=== PATIENT | female | born 1970 | race Caucasian/White ===

== ENCOUNTER 2020-03-21 12:42 | Outpatient (CLI) | payer BC, SELFPAY ==
--- NOTE | 2020-03-21 12:52 | MM_ITS ---
WS: [id number] BILATERAL DIGITAL SCREENING MAMMOGRAPHY WITH CAD CLINICAL INFORMATION: SCREENING HISTORY: Screening mammogram. No current complaints. COMPARISON: TECHNIQUE: Bilateral CC and MLO views. FINDINGS: Scattered fibroglandular densities bilaterally. No suspicious focal mass, asymmetry, calcifications, or architectural distortion. No evidence of malignancy. MM/[id number] IMPRESSION: BI-RADS: 1-Negative FOLLOW UP: 1 Year Follow-up Recommend return to annual screening mammography.
== END 2020-03-21 12:43 | disposition home or self-care (01) ==
LOC: RADSHAW 12:44
PROVIDERS: PCP Family Medicine; Visit Provider Family Medicine
DX: Z12.31 Encounter for screening mammogram for malignant neoplasm of breast (principal)
CPT/HCPCS: 77067

== ENCOUNTER 2021-08-01 14:40 | Outpatient (CLI) | payer BC, SELFPAY ==
--- NOTE | 2021-08-01 14:57 | MM_ITS ---
WS: [id number] SCREENING DIGITAL BREAST TOMOSYNTHESIS MAMMOGRAM WITH CAD HISTORY: SCREENING COMPARISON: 03/21/2020, 11/21/2018 Bilateral CC and MLO with tomosynthesis views submitted. Synthetic mammography reviewed. Computer aid ed detection analyzed. Breast composition: There are scattered areas of fibroglandular density. No suspicious masses, microc alcifications or architectural distortion. MM/[place] [id number] IMPRESSION: BI-RADS: 1-Negative FOLLOW UP: 1 Year Follow-up
== END 2021-08-01 14:41 | disposition home or self-care (01) ==
LOC: RAD 14:43
PROVIDERS: PCP Family Medicine; Visit Provider Family Medicine
DX: Z12.31 Encounter for screening mammogram for malignant neoplasm of breast (principal)
CPT/HCPCS: 77063; 77067

== ENCOUNTER 2022-09-17 08:20 | Outpatient (CLI) | payer BC, SELFPAY ==
--- NOTE | 2022-09-17 08:27 | MM_ITS ---
WS: [id number] BILATERAL SCREENING DIGITAL TOMOSYNTHESIS MAMMOGRAM WITH CAD HISTORY: SCREENING COMPARISON: 08/01/2021 and 03/21/2020 Bilateral CC and MLO views with tomosynthesis and synthetic mammography submitted. Computer aided det ection analyzed. Breast composition: There are scattered areas of fibroglandular density. No suspicious masses, microc alcifications or architectural distortion. Benign calcification central posterior right breast. IMPRESSION: MM/[place] [id number] BI-RADS: 2-Benign FOLLOW UP: 1 Year Follow-up
== END 2022-09-17 08:21 | disposition home or self-care (01) ==
LOC: RAD 08:25 → MOBLMAM 08:26
PROVIDERS: PCP Family Medicine; Visit Provider Family Medicine
DX: Z12.31 Encounter for screening mammogram for malignant neoplasm of breast (principal)
CPT/HCPCS: 77063; 77067

== ENCOUNTER → 2022-09-25 10:50 | Outpatient (BNVA) | payer BC, SELFPAY | PROVIDERS: PCP Family Medicine; Visit Provider Nurse Practitioner Women's Health | DX: N93.9 Abnormal uterine and vaginal bleeding, unspecified (principal) | CPT/HCPCS: 84443; 85025; 87624 ==

== ENCOUNTER → 2022-10-06 12:30 | Outpatient (BNVA) | payer BC, SELFPAY | PROVIDERS: PCP Family Medicine; Visit Provider Nurse Practitioner Women's Health | DX: N93.9 Abnormal uterine and vaginal bleeding, unspecified (principal); N83.201 Unspecified ovarian cyst, right side | CPT/HCPCS: 76830 ==

== ENCOUNTER 2022-12-10 10:20 | Day surgery (SDC) | payer BC, SELFPAY ==
[2022-12-10] VITALS (10 sets, daily range): BP systolic 133–179; BP diastolic 68–107; PULSE 69–95; RESP 10–20; TEMP 36.1–36.6; O2SAT 12–98; BMI 35.5
[2022-12-10 10:41] LABS: OR HCG Qualitative Urine Negative (Negative)
[2022-12-10] MEDS: sodium chloride 0.9% 1,000 ML 30 ML IV (10:44)
--- NOTE | 2022-12-10 11:25 | ANES.PREANE2 ---
Pre-Anesthetic Assessment Height/Weight: Height 1.68 m Weight 99.79 kg Temp Pulse Resp BP Pulse Ox O2 Del Method 97.0 F L 88 18 179/107 98 Room Air 12/10/22 10:35 12/10/22 10:35 12/10/22 10:35 12/10/22 10:35 12/10/22 10:35 12/10/22 10:36 Operation Date: 12/10/22 11:55 Proposed Procedures p Hysteroscopy w/ Endometrial Sampling(possible endometrial polypectomy with Myosure)(Not Applicable) - Mrerill Omalley MD s Placement of Intrauterine Device(Not Applicable) - Merrill Omalley MD Familial anesthetic complications: None Was Beta Donna taken within 24 hours: Yes Was Clonidine taken within 24 hours: N/A Last intake: Intake Last Liquid Date 12/09/22 Last Liquid Time 23:30 Last Solid Date 12/09/22 Last Solid Time 20:00 Social No alcohol and No tobacco Exam alert, oriented x 3, clear to auscultation bilaterally and regular rate & rhythm Airway Mallampati: Class III Dentition: other (3 missing) CV/HEM Hypertension Metabolic Morbid Obesity Anesthetic Plan ASA status: 2 Anesthesia: General Risk of > 500 ml blood loss (7ml/kg in children): No Medications/Allergies Home Medications Medication Instructions Recorded Confirmed Last Taken Type metoprolol tartrate 25 mg tablet 25 mg PO DAILY 09/25/22 12/10/22 12/10/22 08:30 History Allergies Allergy/AdvReac Type Severity Reaction Status Date / Time No Known Allergies Allergy Verified 12/09/22 13:42 Current Medications Generic Name Dose Route Start Last Admin Trade Name Genny PRN Reason Stop Dose Admin Sodium Chloride 1,000 mls @ 30 mls/hr 12/10/22 10:30 12/10/22 10:44 Sodium Chloride 0.9% IV 12/11/22 10:29 30 mls/hr .Q24H RAY Administration PFSH Anesthesia Medical History Hypertension No pertinent past medical history neghx:dm,thyroid,dvt/pe PCP: [facility] Surgical History No pertinent past surgical history Family History Grandmother Colon cancer paternal Thyroid disease maternal Father Diabetes Heart disease Hyperlipidemia Hypertension Brother Diabetes Mother Thyroid disease Family/Other Thyroid disease maternal aunt Denies family history of Ovarian cancer Prostate cancer Breast cancer Uterine cancer Stroke Data Anesthesia Cardiac Studies: No Data to Display
--- NOTE | 2022-12-10 12:24 | W.PM.OPSFHP ---
Same Day Surgery H&P Indication for Procedure/HPI DATE OF PROCEDURE: December 10, 2022 CHIEF COMPLAINT/INDICATIONFOR SURGICAL PROCEDURE: abnormal uterine bleeding heavy and prolonged menses PREOP DIAGNOSIS: abnormal uterine bleeding PLANNED PROCEDURE: Operation Date: 12/10/22 11:55 Proposed Procedures p Hysteroscopy w/ Endometrial Sampling(possible endometrial polypectomy with Myosure)(Not Applicable) - Merrill Omalley MD s Placement of Intrauterine Device(Not Applicable) - Merrill Omalley MD 52 y.o. Heavy and prolonged periods x two years with bleeding between periods Now scheduled for hysteroscopy, endometrial sampling, possible endometrial polypectomy; Mirena intrauterine device placement Medications/Allergies* Home Medications Medication Instructions Recorded Confirmed Type metoprolol tartrate 25 mg tablet 25 mg PO DAILY 09/25/22 12/10/22 History Allergies/Adverse Reactions Allergy/AdvReac Type Severity Reaction Status Date / Time No Known Allergies Allergy Verified 12/09/22 13:42 Current Medications: Generic Name Dose Route Start Last Admin Trade Name Freq PRN Reason Stop Dose Admin Sodium Chloride 1,000 mls @ 30 mls/hr 12/10/22 10:30 12/10/22 10:44 Sodium Chloride 0.9% IV 12/11/22 10:29 30 mls/hr .Q24H RAY Administration Pertinent History/Comorbid Conditions* Medical History (Updated 09/25/22 @ 10:41 by Nohemy Olivera APN, DARSHANA) Hypertension No pertinent past medical history neghx:dm,thyroid,dvt/pe PCP: [facility] Surgical History (Updated 09/25/22 @ 10:25 by Nohemy Olivera APN, DARSHANA) No pertinent past surgical history Family History (Updated 10/20/22 @ 09:20 by Flaquita Pickering LPN) Colon cancer Grandmother paternal Diabetes Father Brother Heart disease Father Hyperlipidemia Father Hypertension Father Thyroid disease Grandmother maternal Mother Family/Other maternal aunt Denies family history of Ovarian cancer Prostate cancer Breast cancer Uterine cancer Stroke Pertinent Exam Findings alert, oriented x 3, clear to auscultation bilaterally and regular rate & rhythm Pertinent Data Pelvic [id number] 14.5 x 6.7 x 10 cm Endometrium heterogeneous? 2.6 cm Normal right ovaryLeft ovary not visualized Recommendations Surgery/Procedure today Coding Level of Care Code Acute Code for Chg Fwd Diagnoses Time Spent (min) 20
--- NOTE | 2022-12-10 12:26 | W.PM.OPSUD ---
Surgery/Procedure H&P Update DATE OF PROCEDURE: December 10, 2022 DATE H&P PERFORMED: 12/10/22 PREOP DIAGNOSIS: abnormal uterine bleeding PLANNED PROCEDURE: Operation Date: 12/10/22 11:55 Proposed Procedures p Hysteroscopy w/ Endometrial Sampling(possible endometrial polypectomy with Myosure)(Not Applicable) - Merrill Omalley MD s Placement of Intrauterine Device(Not Applicable) - Merrill Omalley MD
--- NOTE | 2022-12-10 15:00 | ANE.PACU2 ---
Inpatient post-anesthesia follow up: Airway intact: Yes Vital signs: Temperature 97.4 F Pulse Rate 69 Respiratory Rate 18 Blood Pressure 152/83 Pulse Oximetry 97 Oxygen Delivery Me thod Room Air Oxygen Flow Rate Fraction of Inspir ed Oxygen Hydration adequate: Yes Nausea and vomiting: No Pain level: 1 Mental status: Baseline
--- NOTE | 2022-12-10 15:10 | PM.OP ---
Operative Report Date of procedure: December 10, 2022 Pre-op diagnosis: abnormal uterine bleeding Post-op diagnosis: same Post-op findings: uterus sounded to 12 cm + three endometrial polyps + moderate amount of fluffy endometrial tissue Procedure done: hysteroscopy Endometrial sampling and polypectomy with Myosure Curettage of uterus Placement of mirena intrauterine device Specimens removed/disposition: endometrial tissue Surgeon: Merrill Omalley MD Anesthesia: General Estimated blood loss (mL): 5 Complications: none Condition: stable Disposition: PACU Brief History: 52 y.o. Heavy and prolonged periods x two years with bleeding between periods scheduled for hysteroscopy, endometrial sampling, possible endometrial polypectomy; Mirena intrauterine device placement Procedure: Informed consent signed. Patient taken to the operating room. Anesthesia induced. Patient was placed in dorsolithotomy position, prepped and draped for hysteroscopy. A bivalve speculum was placed in the vagina. The anterior lip of the cervix was grasped with a sharp-toothed tenaculum. The uterus was sounded to 8 cm. The cervix was serially dilated with Hegar dilators. . A hysteroscope was placed into the endometrial cavity. The endometrial cavity was seen in its entirety with the above findings. There was moderate amount of fluffy appearing endometrial tissue. The Myosure device was used to remove the polyps and excess endometrial tissue. The hysteroscope was then removed. Endometrial curettage was done with a sharp curette. Endometrial tissue was sent to pathology. The hysteroscope was re-introduced and the endometrial cavity was seen to be intact. The hysteroscope was removed. The mirena intrauterine device was then prepared, placed into the endometrial cavity and deployed. A 3-4 cm string was left at the cervical os. The sharp-toothed tenaculum was removed. There was no bleeding from the endometrial cavity or cervix. The patient was then placed supine and awakened and taken to the PACU. Postop condition: stable EBL: 5 cc Sponge and instruments counts were normal x 2 Complications: none
== END 2022-12-10 15:00 | disposition home or self-care (01) ==
PROVIDERS: Anesthesiology; PCP Family Medicine; Visit Provider Obstetrics & Gynecology
PROC: 0UJD8ZZ Inspection of Uterus and Cervix, Via Natural or Artificial Opening Endoscopic (ICD-10-PCS; CPT 58555; principal; 2022-12-10 13:20)
PROC: (CPT 58300; 2022-12-10 13:20)
DX: N93.9 Abnormal uterine and vaginal bleeding, unspecified (principal); I10 Essential (primary) hypertension; E66.01 Morbid (severe) obesity due to excess calories; Z68.35 Body mass index [BMI] 35.0-35.9, adult
CPT/HCPCS: 58300; 58558; 81025; 84703; 88305; J1100; J2250; J2405; J2704; J3010; J7030

== ENCOUNTER 2023-09-22 15:19 | Outpatient (CLI) | payer BC, SELFPAY ==
--- NOTE | 2023-09-22 15:23 | MM_ITS ---
WS: [id number] BILATERAL 3D TOMOSYNTHESIS DIGITAL SCREENING MAMMOGRAPHY WITH CAD CLINICAL INFORMATION: SCREENING HISTORY: Screening mammogram. No current complaints. COMPARISON: 2022 TECHNIQUE: Bilateral CC and MLO views. FINDINGS: Scattered fibroglandular densities bilaterally. No suspicious focal mass, asymmetry, calcifications, or architectural distortion. No evidence of malignancy. MM/[place] [id number] IMPRESSION: BI-RADS: 1-Negative FOLLOW UP: 1 Year Follow-up Recommend return to annual screening mammography.
== END 2023-09-22 15:20 | disposition home or self-care (01) ==
LOC: RAD 15:19
PROVIDERS: PCP Family Medicine; Visit Provider Family Medicine
DX: Z12.31 Encounter for screening mammogram for malignant neoplasm of breast (principal)
CPT/HCPCS: 77063; 77067

== ENCOUNTER 2024-09-27 14:11 | Outpatient (CLI) | payer BC, SELFPAY ==
--- NOTE | 2024-09-27 14:15 | MM_ITS ---
WS: [id number] BILATERAL 3D TOMOSYNTHESIS DIGITAL SCREENING MAMMOGRAPHY WITH CAD CLINICAL INFORMATION: SCREENING HISTORY: Screening mammogram. No current complaints. COMPARISON: 2023 TECHNIQUE: Bilateral CC and MLO views. FINDINGS: Scattered fibroglandular densities bilaterally. No suspicious focal mass, asymmetry, calcifications, or architectural distortion. No evidence of malignancy. MM/MM scr BI tomosynthesis [id number] IMPRESSION: DENSITY: There are scattered areas of fibroglandular density. BI-RADS: 1 - Negative. FOLLOW UP: 1 Year Follow-up Recommend return to annual screening mammography.
== END 2024-09-27 14:12 | disposition home or self-care (01) ==
LOC: RAD 14:13
PROVIDERS: PCP Family Medicine; Visit Provider Family Medicine
DX: Z12.31 Encounter for screening mammogram for malignant neoplasm of breast (principal); R92.323 Mammographic fibroglandular density, bilateral breasts
CPT/HCPCS: 77063; 77067